=== PATIENT | female | born 1995 | race Caucasian/White ===

== ENCOUNTER 2016-07-01 10:17 | Day surgery (SDC) | payer OTHER ==
[2016-07-01] MEDS ORDERED: NORMAL SALINE 500 ML IV ONE (10:39)
[2016-07-01] MEDS ORDERED: METOCLOPRAMIDE HCL INJ/PF 10 MG/2 ML SDV IV ONE (10:39)
--- NOTE | 2016-07-01 10:41 | ER Document Report ---
Doctor's Note Notes: 07/01/16 10:40 20-year-old female 11 weeks with a history of hyperemesis presents with episodes of vomiting for the past few days. Patient denies any fevers or chills admits to abdominal cramping. Denies any vaginal bleeding or discharge Patient notes Reglan resolves her vomiting
[2016-07-01] MEDS ORDERED: MORPHINE SULFATE 10 MG/ML INJ IV ONE ×2 (10:49→12:01)
--- NOTE | 2016-07-01 10:53 | ER Document Report ---
Doctor's Note Notes: 07/01/16 10:51 I have greeted and performed a rapid initial assessment of this patient. A comprehensive ED assessment and evaluation of the patient, analysis of test results and completion of the medical decision making process will be conducted by additional ED providers. 20-year-old female presents with complaints of right lower quadrant abdominal pain. Denies any fevers or chills. Abdominal examination notes tenderness in the right lower quadrant without any guarding
--- NOTE | 2016-07-01 11:11 | ER Document Report ---
ED GI/ - General Mode of Arrival: Ambulatory TRAVEL OUTSIDE OF THE [place] IN LAST 30 DAYS: No - HPI Patient complains to provider of: Abdominal pain Associated symptoms: Other - See above <IRISH WRAY - Last Filed: 07/01/16 11:11> <HUMAIRA CRYSTAL - Last Filed: 07/01/16 13:46> - General Chief Complaint: Abdominal Pain Stated Complaint: ABDOMINAL PAIN Notes: Patient is a 20 year old female who presents to the emergency department complaining of abdominal pain onset at 0430 this morning. Patient states the pain started as "bloat pain" and has worsened. Patient reports the pain is in her RUQ and radiates into her back and across her belly. Patient states she ate [employer] last night for dinner. Patient also complains of nausea and vomiting. Patient denies states her last menstrual period was around . Patient took hydrocodone this morning around 0930 with little relief. ( IRISH WRAY) - Related Data Allergies/Adverse Reactions: Shrimp Allergy (Uncoded 07/01/16 10:21) Past Medical History - General Information source: Patient - Social History Smoking Status: Never Smoker Frequency of alcohol use: None Occupation: [employer] [place] Family History: Reviewed & Not Pertinent Patient has suicidal ideation: No Patient has homicidal ideation: No <IRISH WRAY - Last Filed: 07/01/16 11:11> Review of Systems - Review of Systems Constitutional: No symptoms reported EENT: No symptoms reported Cardiovascular: No symptoms reported Respiratory: No symptoms reported Gastrointestinal: See HPI, Abdominal pain, Nausea, Vomiting Genitourinary: No symptoms reported Female Genitourinary: denies: Musculoskeletal: No symptoms reported Skin: No symptoms reported Hematologic/Lymphatic: No symptoms reported Neurological/Psychological: No symptoms reported -: Yes All other systems reviewed and negative <IRISH WRAY - Last Filed: 07/01/16 11:11> Physical Exam - Vital signs Interpretation: Normal - General General appearance: Appears well, Alert - HEENT Head: Normocephalic, Atraumatic - Respiratory Respiratory status: No respiratory distress Chest status: Nontender Breath sounds: Normal Chest palpation: Normal - Cardiovascular Rhythm: Regular Heart sounds: Normal auscultation Murmur: No - Abdominal Inspection: Obese Distension: No distension Bowel sounds: Normal Tenderness: Tender - RUQ exquisitely tender to palpation Organomegaly: No organomegaly - Extremities General upper extremity: Normal inspection General lower extremity: Normal inspection - Neurological Neuro grossly intact: Yes Cognition: Normal Orientation: AAOx4 Monse Coma Scale Eye Opening: Spontaneous Monse Coma Scale Verbal: Oriented Monse Coma Scale Motor: Obeys Commands Jackson Coma Scale Total: 15 Speech: Normal - Psychological Associated symptoms: Normal affect, Normal mood - Skin Skin Temperature: Warm Skin Moisture: Dry Skin Color: Normal <IRISH WRAY - Last Filed: 07/01/16 11:11> Course - Laboratory Result Diagrams: 07/01/16 10:45 07/01/16 10:45 <IRISH WRAY - Last Filed: 07/01/16 11:11> - Laboratory Result Diagrams: 07/01/16 10:45 07/01/16 10:45 - Diagnostic Test Radiology reviewed: Image reviewed, Reports reviewed - Cholelithiasis without cholecystitis. Possible gallstone in the gallbladder neck. - Consults Dr. Garcia Time consulted: 13:20 Consulted provider: will come to ER <HUMAIRA CRYSTAL - Last Filed: 07/01/16 13:46> - Vital Signs Vital signs: Temp Pulse Resp BP Pulse Ox 97.7 F 77 20 144/97 H 100 07/01/16 10:22 07/01/16 10:22 07/01/16 11:10 07/01/16 10:22 07/01/16 10:22 - Laboratory Laboratory results interpreted by me: 07/01/16 07/01/16 10:45 10:45 WBC 12.1 H Seg Neutrophils % 81.7 H Absolute Neutrophils 9.9 H Glucose 124 H Discharge <IRISH WRAY - Last Filed: 07/01/16 11:11> - Discharge Admitting Provider: Surgicalist Unit Admitted: Surgical Floor <HUMAIRA CRYSTAL - Last Filed: 07/01/16 13:46> - Discharge Clinical Impression: Right upper quadrant abdominal pain Cholelithiasis Qualifiers: Cholelithiasis location: gallbladder Cholecystitis presence: without cholecystitis Biliary obstruction: without biliary obstruction Qualified Code(s) : K80.20 - Calculus of gallbladder without cholecystitis without obstruction Condition: Stable Disposition: ADMITTED INPATIENT Scribe Attestation: 07/01/16 13:23 I personally performed the services described in the documentation, reviewed and edited the documentation which was dictated to the scribe in my presence, and it accurately records my words and actions. (HUMAIRA CRYSTAL) Scribe Documentation - Scribe Written by Marc:: marc Alvarado, 07/01/16, 1121 acting as scribe for :: Nicole <IRISH WRAY - Last Filed: 07/01/16 11:11>
[2016-07-01 11:12] LABS: ABSOLUTE BASOPHILS # (AUTO) 0.1 10^3/uL (0.0-0.2); ABSOLUTE LYMPHOCYTES (AUTO) 1.7 10^3/uL (0.5-4.7); ABSOLUTE MONOCYTES (AUTO) 0.5 10^3/uL (0.1-1.4); ABSOLUTE NEUT (AUTO) 9.9 10^3/uL (1.7-8.2); BASOPHILS % (AUTO) 0.5 % (0-2); EOSINOPHILS % (AUTO) 0.1 % (0-6); HEMATOCRIT 41.9 % (36.0-47.0); HGB HCT DIFFERENCE 0.1; LYMPHOCYTES % (AUTO) 13.9 % (13-45); MEAN CORPUSCULAR HEMOGLOBIN 27.3 pg (27.0-33.4); MEAN CORPUSCULAR HGB CONC 33.4 g/dL (32.0-36.0); MEAN CORPUSCULAR VOLUME 82 fl (80-97); MONOCYTES % (AUTO) 3.8 % (3-13); RED BLOOD COUNT 5.13 10^6/uL (3.72-5.28); SEGMENTED NEUTROPHILS % (AUTO) 81.7 % (42-78); WHITE BLOOD COUNT 12.1 10^3/uL (4.0-10.5)
[2016-07-01] MEDS ORDERED: ONDANSETRON HCL INJ/PF 4 MG/2 ML SDV IV ONE (11:12)
[2016-07-01] MEDS ORDERED: KETOROLAC TROMETHAMINE INJ/PF 30 MG/1 ML SDV IV ONE (11:12)
[2016-07-01 11:28] LABS: APPEARANCE,URINE CLOUDY; BILIRUBIN,URINE NEGATIVE (NEGATIVE); GLUCOSE, URINE NEGATIVE (NEGATIVE); KETONES,URINE NEGATIVE (NEGATIVE); LEUKOCYTE ESTERASE,URINE NEGATIVE (NEGATIVE); NITRITE,URINE NEGATIVE (NEGATIVE); PROTEIN,URINE NEGATIVE (NEGATIVE); UROBILINOGEN,URINE NEGATIVE mg/dL (<2.0)
[2016-07-01 11:35] LABS: ALANINE AMINOTRANSFERASE 45 U/L (9-52); ALBUMIN 4.7 g/dL (3.5-5.0); ALKALINE PHOSPHATASE 77 U/L (38-126); ANION GAP 16 (5-19); ASPARTATE AMINO TRANSFERASE 32 U/L (14-36); BILIRUBIN,DIRECT 0.3 mg/dL (0.0-0.4); BILIRUBIN,TOTAL 0.6 mg/dL (0.2-1.3); BLOOD UREA NITROGEN 12 mg/dL (7-20); CALCIUM 9.6 mg/dL (8.4-10.2); CARBON DIOXIDE 22 mmol/L (22-30); CHLORIDE 104 mmol/L (98-107); CREATININE RESULT 0.75 mg/dL (0.52-1.25); GLUCOSE 124 mg/dL (75-110); LIPASE 58.8 U/L (23-300); POTASSIUM 4.1 mmol/L (3.6-5.0); SODIUM 141.8 mmol/L (137-145)
[2016-07-01] MEDS ORDERED: PIPERACILLIN/TAZOBACTAM 3.375 GM VIAL IV ONE ×2 (13:20→23:32)
[2016-07-01] MEDS ORDERED: DEXTROSE 5%-LACTATED RINGERS 1,000 ML IV ONE (14:09)
--- NOTE | 2016-07-01 14:58 | HISTORY AND PHYSICAL E ---
History and Physical NAME: DOC AGUILA : 1995 AGE: 20Y ADMITTED: 07/01/2016 ROOM: CHIEF COMPLAINT: Abdominal pain. HISTORY OF PRESENT ILLNESS: This is a 30-year-old female, complaining of right upper quadrant pain around 4:00 a.m. She did have a fatty meal around 10:00 last night. She had some nausea. PAST MEDICAL HISTORY: Past history is unremarkable. SOCIAL HISTORY: She denies smoking, drinking, or drug use. FAMILY HISTORY: Family history is strong for gallbladder disease. Her mother had her gallbladder removed at age 22. REVIEW OF SYSTEMS: As in HPI. She denies any diarrhea or constipation. No chest pains. No shortness of breath. No headaches or loss of balance. No earache. No blurry vision. No dysuria. No balance problems. The rest of the review of systems is unremarkable. ALLERGIES: None known. PHYSICAL EXAMINATION: GENERAL: A well-developed, well-nourished 20-year-old female, alert and oriented, complaining of right upper quadrant pain. NECK: Supple. No thyromegaly. LUNGS: Clear. HEART: Regular sinus rhythm. ABDOMEN: Soft with tenderness in the right upper quadrant. EXTREMITIES: No edema. DIAGNOSTIC DATA: Ultrasound of the gallbladder showed gallstones. Her white count is elevated to 12.5. Her LFT's are normal. IMPRESSION: Acute calculus cholecystitis. PLAN: Patient for laparoscopic cholecystectomy. DICTATING PHYSICIAN: EDMAR PALOMO M.D. [id number] PHY#: [id number] ID: [id number] JOB#: [id number] ACCT: [id number] cc:EDMAR PALOMO M.D. >
[2016-07-01] MEDS ORDERED: BUPIVACAINE HCL 0.25% /EPINEPHRINE INJ/PF 30 ML SDV ONE (15:12)
[2016-07-01] MEDS ORDERED: FENTANYL CITRATE INJ/PF 250 MCG/5 ML AMPULE ONE (15:45)
[2016-07-01] MEDS ORDERED: HYDROMORPHONE HCL INJ/PF 2 MG/ML AMPULE ONE ×2 (15:45)
[2016-07-01] MEDS ORDERED: MIDAZOLAM 2 MG/2 ML INJ ONE (15:45)
[2016-07-01] MEDS ORDERED: ONDANSETRON HCL INJ/PF 4 MG/2 ML SDV ONE (15:46)
[2016-07-01] MEDS ORDERED: EPHEDRINE SULFATE INJ 50 MG/1 ML AMPULE ONE (15:46)
[2016-07-01] MEDS ORDERED: DEXAMETHASONE SOD PHOSPHATE INJ 4 MG/1 ML VIAL ONE (15:46)
[2016-07-01] MEDS ORDERED: PROPOFOL INJ 200 MG/20 ML VIAL IV ONE (15:46)
[2016-07-01] MEDS ORDERED: MEPERIDINE HCL/PF INJ 25 MG/1 ML DISP.SYRIN IV PRN (16:13)
[2016-07-01] MEDS ORDERED: PROMETHAZINE HCL INJ 25 MG/1 ML VIAL IV PRN (16:13)
[2016-07-01] MEDS ORDERED: FENTANYL CITRATE INJ/PF 100 MCG/2 ML AMPUL IV PRN ×3 (16:13)
[2016-07-01] MEDS ORDERED: DIPHENHYDRAMINE HCL 50 MG/ML VIAL IV PRN (16:13)
[2016-07-01] MEDS ORDERED: ACETAMINOPHEN 100 ML IV ONE (18:10)
[2016-07-01] MEDS ORDERED: KETOROLAC TROMETHAMINE INJ/PF 30 MG/1 ML SDV ONE (18:10)
[2016-07-01] MEDS ORDERED: PROMETHAZINE HCL INJ 25 MG/1 ML VIAL ONE (18:29)
[2016-07-01] MEDS ORDERED: ONDANSETRON HCL INJ/PF 4 MG/2 ML SDV IV PRN (19:49)
[2016-07-01] MEDS ORDERED: HYDROMORPHONE HCL INJ/PF 2 MG/ML AMPULE IV PRN (19:50)
[2016-07-01] MEDS ORDERED: NORMAL SALINE 1000 ML 1,000 ML IV PRN (19:52)
[2016-07-01] MEDS: OXYCODONE-ACETAMINOPHEN 5-325 MG TABLET PO PRN (22:06)
[2016-07-02] MEDS ORDERED: PIPERACILLIN/TAZOBACTAM 4.5 GM VIAL IV ONE (01:41)
[2016-07-02] MEDS: PIPERACILLIN SODIUM/TAZOBACTAM 3.375 GM in NORMAL SALINE 100 ML IV SCH ×4 (03:11→17:48)
[2016-07-02] MEDS: OXYCODONE-ACETAMINOPHEN 5-325 MG TABLET PO PRN ×4 (04:53→17:47)
[2016-07-02] MEDS ORDERED: LIDOCAINE 2% INJ-PF (20 MG/ML) 10 ML AMPUL ONE (09:50)
[2016-07-02] MEDS ORDERED: NEOSTIGMINE METHYLSULFATE 10 MG/10 ML VIAL ONE (09:50)
[2016-07-02] MEDS ORDERED: SUCCINYLCHOLINE CHLORIDE INJ 200 MG/10 ML VIAL ONE (09:50)
[2016-07-02] MEDS ORDERED: GLYCOPYRROLATE INJ 0.4 MG/2 ML VIAL ONE (09:50)
[2016-07-02] MEDS ORDERED: ROCURONIUM BROMIDE INJ 50 MG/5 ML VIAL IV ONE (09:50)
[2016-07-02 15:49] VITALS: BP 133/86
--- NOTE | 2016-07-03 15:45 | OPERATIVE REPORT E ---
Operative Report NAME: DOC AGUILA : 1995 AGE: [age]Y DATE OF SURGERY: 07/01/2016 ROOM: 413 PREOPERATIVE DIAGNOSIS: Acute calculus cholecystitis. POSTOPERATIVE DIAGNOSIS: Acute calculus cholecystitis. OPERATION: Laparoscopic cholecystectomy. SURGEON: EDMAR PALOMO M.D. ANESTHESIA: General. INDICATION: This is a 20-year-old female complaining of severe right lower quadrant pains early this morning, at 4 a.m. She had a fatty meal last night. Ultrasound of the gallbladder in the ER showed gallstones near the cystic duct. Her white count was slightly elevated. Is markedly tender in the right upper quadrant. DESCRIPTION OF PROCEDURE: After adequate and general anesthesia, the patient was placed in the supine position and the abdomen prepped and draped in the usual sterile fashion. Appropriate timeout was then performed. Next, an elliptical infraumbilical incision was made and the fascia identified. Fascia was then grasped with Nancy clamps and divided. The opening was then enlarged with a Lexus clamp into the peritoneal cavity. Next, a Winter trocar was then inserted and CO2 insufflated through this trochar to a pressure of 15 mmHg. Three other trocars were placed under direct vision. A 12 mm in the subxiphoid area and two 5 mm in the right upper quadrant. Next, the gallbladder was then inspected and noted to be markedly distended and inflamed. With the use of a long needle, about 30 mL of bile was aspirated. This allowed the graspers to grasp the gallbladder. Next, the infundibulum area was then grasped and the cystic duct was then dissected bluntly and with the use of Harmonic vishal, especially around the area of the lymph node at the area of the cystic duct. This obtained hemostasis. The cystic duct area appears to be quite infrahepatic and dissection needed to be done quite gingerly. The cystic duct was then identified just below the infundibulum, which had a gallstone. The cystic duct was subsequently clipped with hemoclips and divided between the hemoclips. Cystic artery was identified and clipped with the hemoclips. The gallbladder was then dissected off the liver bed with the use of Harmonic vishal gently and slowly, because the gallbladder was quite infrahepatic. The gallbladder was then completely removed and pulled out in an Endobag through the umbilical port. The umbilical fascial opening needed to be enlarged with scissors to allow removal of the gallbladder. A small amount of bile extruded out into the area of the incision. This was then irrigated with saline solution. The liver bed was then inspected and minimal oozing noted of area of the remnant of the lymph node at the cystic duct site. This was further controlled with the use of the Harmonic vishal. No active bleeding noted, but a small piece of Surgicel was then placed at this area for better hemostasis. The irrigant was then further suctioned out. All the trocars were then removed and CO2 allowed to come out through the trocar sites. The infraumbilical fascial incision was then closed with 2 [id number] sutures using 0 Vicryl sutures. Skin was then closed with running subcuticular 4-0 Monocryl. Subcutaneous and fascia then infiltrated with 0.25% Marcaine with epinephrine. The fascial defect of the subxiphoid area was then closed with a single suture using 0 Vicryl. The fascia was then infiltrated with 0.25% Marcaine and epinephrine as far as the subcutaneous site. The rest of the skin incisions were then closed with running subcuticular closure using 4-0 Monocryl. Dermabond was used as a dressing on top of all the incisions. [place], instruments, and sponge counts were all correct and estimated blood loss was minimal. Patient then brought to the Recovery Room in satisfactory condition. DICTATING PHYSICIAN: EDMAR PALOMO M.D. [id number] PHY#: [id number] ID: [id number] JOB#: [id number] ACCT: [id number] cc:EDMAR PALOMO M.D. >
== END 2016-07-02 19:26 | disposition home or self-care (01) ==
LOC: ER 10:17 → UNDOADMIN 15:10 → EH 15:10 → ER 15:10 → OROUT 15:10 → EH 15:11 → UNDOADMIN 15:11 → 4N 19:25 → EH 19:25 → 4N 19:25 → UNDODISIN 07-02 19:26 → OROUT 07-02 19:26
PROVIDERS: ATTEND Surgery
PROC: 0FT44ZZ Resection of Gallbladder, Percutaneous Endoscopic Approach (ICD-10-PCS; principal; 2016-07-01 16:00)
DX: K80.12 Calculus of gallbladder with acute and chronic cholecystitis without obstruction (principal); E07.9 Disorder of thyroid, unspecified
CPT/HCPCS: 47562; 99285; 96375; 96365; 36415; 83690; 85025; 81025; 80053; 81001; 88304 ×2; 76705; J2250; J3490 ×3; J1100; J3010; J1885; J2270; J1170; J2550; J0330; J2405; J7040; J2704; J2543 ×2; J0131; 790

== ENCOUNTER 2017-11-29 18:35 | Outpatient (CLI) | payer BC, OTHER ==
[2017-11-29 19:09] LABS: APPEARANCE,URINE SLIGHTLY-CLOUDY; BILIRUBIN,URINE NEGATIVE (NEGATIVE); COLOR,URINE YELLOW; GLUCOSE, URINE NEGATIVE (NEGATIVE); KETONES,URINE NEGATIVE (NEGATIVE); LEUKOCYTE ESTERASE,URINE SMALL (NEGATIVE); NITRITE,URINE NEGATIVE (NEGATIVE); PROTEIN,URINE NEGATIVE (NEGATIVE); URINE SPECIFIC GRAVITY 1.011; UROBILINOGEN,URINE NEGATIVE mg/dL (<2.0)
[2017-11-29 19:23] LABS: URINE AMPHETAMINES SCREEN NEGATIVE; URINE BARBITURATES SCREEN NEGATIVE; URINE BENZODIAZEPINES SCREEN NEGATIVE; URINE COCAINE SCREEN NEGATIVE; URINE MARIJUANA (THC) SCREEN NEGATIVE; URINE METHADONE SCREEN NEGATIVE; URINE PHENCYCLIDINE SCREEN NEGATIVE
--- NOTE | 2017-11-29 20:02 | RADIOLOGY REPORT (SQ) ---
EXAM DESCRIPTION: U/S OB LIMITED COMPLETED DATE/TIME: 11/29/2017 7:38 pm REASON FOR STUDY: RADHA COMPARISON: None. TECHNIQUE: Limited transabdominal grayscale ultrasound for evaluation of specific requested obstetri altagracia parameters. LIMITATIONS: None. FINDINGS: CERVICAL LENGTH: 1.8 cm. Closed. RADHA: 9.2 cm. FHR: 140 beats per minute. PRESENTATION: Cephalic. OTHER: Gestational age is 27 weeks 3 days. IMPRESSION: LIMITED OBSTETRICAL ULTRASOUND WITH MEASURED PARAMETERS DELINEATED ABOVE. Trimester of : Second trimester - 13 weeks 1 day to 27 weeks 6 days. TECHNICAL DOCUMENTATION: JOB ID: [id number] [employer]- All Rights Reserved Reading location - IP/workstation name: [email or web address]
== END 2017-11-29 20:23 | disposition home or self-care (01) ==
LOC: LC 18:35
PROVIDERS: ATTEND Obstetrics & Gynecology Gynecology
PROC: 4A1HXCZ Monitoring of Products of Conception, Cardiac Rate, External Approach (ICD-10-PCS; principal; 2017-11-29)
DX: Z34.92 Encounter for supervision of normal pregnancy, unspecified, second trimester (principal); Z3A.27 27 weeks gestation of pregnancy
CPT/HCPCS: 76815; 80307; 81001

== ENCOUNTER 2018-01-20 09:05 | Outpatient (CLI) | payer BC ==
[2018-01-20 09:59] LABS: APPEARANCE,URINE SLIGHTLY-CLOUDY; BILIRUBIN,URINE NEGATIVE (NEGATIVE); COLOR,URINE YELLOW; GLUCOSE, URINE NEGATIVE (NEGATIVE); KETONES,URINE NEGATIVE (NEGATIVE); LEUKOCYTE ESTERASE,URINE SMALL (NEGATIVE); NITRITE,URINE NEGATIVE (NEGATIVE); PROTEIN,URINE NEGATIVE (NEGATIVE); URINE SPECIFIC GRAVITY 1.014; UROBILINOGEN,URINE NEGATIVE mg/dL (<2.0)
[2018-01-20 10:22] LABS: URINE AMPHETAMINES SCREEN NEGATIVE; URINE BARBITURATES SCREEN NEGATIVE; URINE BENZODIAZEPINES SCREEN NEGATIVE; URINE COCAINE SCREEN NEGATIVE; URINE MARIJUANA (THC) SCREEN NEGATIVE; URINE METHADONE SCREEN NEGATIVE; URINE PHENCYCLIDINE SCREEN NEGATIVE
== END 2018-01-20 10:15 | disposition home or self-care (01) ==
LOC: LC 09:05
PROVIDERS: ATTEND Obstetrics & Gynecology
PROC: 4A1HXCZ Monitoring of Products of Conception, Cardiac Rate, External Approach (ICD-10-PCS; principal; 2018-01-20)
DX: O47.03 False labor before 37 completed weeks of gestation, third trimester (principal); O36.8130 Decreased fetal movements, third trimester, not applicable or unspecified; Z3A.35 35 weeks gestation of pregnancy
CPT/HCPCS: 59025; 80307; 81001

== ENCOUNTER 2018-02-06 14:07 | Outpatient (CLI) | payer BC ==
[2018-02-06 14:52] LABS: APPEARANCE,URINE SLIGHTLY-CLOUDY; BILIRUBIN,URINE NEGATIVE (NEGATIVE); COLOR,URINE STRAW; GLUCOSE, URINE NEGATIVE (NEGATIVE); KETONES,URINE NEGATIVE (NEGATIVE); LEUKOCYTE ESTERASE,URINE MODERATE (NEGATIVE); NITRITE,URINE NEGATIVE (NEGATIVE); PROTEIN,URINE NEGATIVE (NEGATIVE); URINE SPECIFIC GRAVITY 1.006; UROBILINOGEN,URINE NEGATIVE mg/dL (<2.0)
--- NOTE | 2018-02-06 15:01 | Non Stress Test Report ---
Non Stress Test Datetime Report Generated by CPN: 02/06/2018 15:01 DEMOGRAPHIC EGA NST: 37.3 EGA NST: 35.0 INDICATION Indication for Study: Ordered by Provider Indication for Study: Decreased Movement; Other Indication for Study (NST) Other: lc VITAL SIGNS Temperature - NST: 99.4 Pulse - NST: 92 RESP - NST: 18 NBPSYS NST: 109 NBPDIA NST: 66 MONITORING Monitor Explained: Monitor Explained; Test Explained; Patient Verbalized Understanding Monitor Explained: Monitor Explained; Test Explained; Patient Verbalized Understanding Time on Monitor: 02/06/2018 14:30 Time on Monitor: 01/20/2018 09:18 Time off Monitor: 02/06/2018 14:58 Time off Monitor: 01/20/2018 10:11 NST Duration: 28 NST Duration: 53 NST INTERVENTIONS NST Interventions: PO Hydration NST Interventions: PO Hydration; Reposition Patient Physician Notified NST: Dr. Younger BABY A: [id number] BABY A Movement : Present Movement : Present Contraction Frequency : none Contraction Frequency : occasional FHR Baseline : 135 FHR Baseline : 145 Accelerations : 15X15 Accelerations : 15X15 Decelerations : None Decelerations : None Variability : Moderate 6-25bpm Variability : Moderate 6-25bpm NST Review: Meets Criteria for Reactive NST NST Review: Meets Criteria for Reactive NST NST Review and Verified By : DEENA Santana NST Review and Verified By : DEENA JohnsonT Results: Reactive NST Results: Reactive NST REPORT Report Trigger: Send Report
[2018-02-06 15:09] LABS: URINE AMPHETAMINES SCREEN NEGATIVE; URINE BARBITURATES SCREEN NEGATIVE; URINE BENZODIAZEPINES SCREEN NEGATIVE; URINE COCAINE SCREEN NEGATIVE; URINE MARIJUANA (THC) SCREEN NEGATIVE; URINE METHADONE SCREEN NEGATIVE; URINE PHENCYCLIDINE SCREEN NEGATIVE
== END 2018-02-06 15:03 | disposition home or self-care (01) ==
LOC: LC 14:07
PROVIDERS: ATTEND Obstetrics & Gynecology
PROC: 4A1HXCZ Monitoring of Products of Conception, Cardiac Rate, External Approach (ICD-10-PCS; principal; 2018-02-06)
DX: O36.8130 Decreased fetal movements, third trimester, not applicable or unspecified (principal); Z3A.37 37 weeks gestation of pregnancy
CPT/HCPCS: 59025; 80307; 81005; 84112

== ENCOUNTER 2018-02-19 00:05 | Inpatient (IN) | payer BC ==
[2018-02-19] MEDS ORDERED: ACETAMINOPHEN 325 MG TABLET PO PRN (00:21)
[2018-02-19] MEDS ORDERED: ZOLPIDEM TARTRATE 5 MG TABLET PO PRN (00:21)
[2018-02-19] MEDS ORDERED: MAG HYDROX/AL HYDROX/SIMETH SUSP 30 ML UDCUP PO PRN (00:21)
[2018-02-19] MEDS ORDERED: RINGERS SOLUTION,LACTATED 300 ML IV ONE (00:30)
[2018-02-19] MEDS ORDERED: DINOPROSTONE 10 MG VAGINAL INSERT.SR PV ONE (00:30)
[2018-02-19 00:47] LABS: ABSOLUTE EOSINOPHILS # (AUTO) 0.1 10^3/uL (0.0-0.6); ABSOLUTE LYMPHOCYTES (AUTO) 2.4 10^3/uL (0.5-4.7); ABSOLUTE MONOCYTES (AUTO) 0.6 10^3/uL (0.1-1.4); BASOPHILS % (AUTO) 0.4 % (0-2); EOSINOPHILS % (AUTO) 0.7 % (0-6); HEMATOCRIT 32.4 % (36.0-47.0); HEMOGLOBIN 10.9 g/dL (12.0-15.5); MEAN CORPUSCULAR HEMOGLOBIN 24.9 pg (27.0-33.4); MEAN CORPUSCULAR HGB CONC 33.7 g/dL (32.0-36.0); MEAN CORPUSCULAR VOLUME 74 fl (80-97); MONOCYTES % (AUTO) 6.7 % (3-13); PLATELET COUNT 198 10^3/uL (150-450); RED BLOOD COUNT 4.37 10^6/uL (3.72-5.28); RED CELL DISTRIBUTION WIDTH 14.7 % (11.5-14.0); SEGMENTED NEUTROPHILS % (AUTO) 66.2 % (42-78); TOTAL CELLS COUNTED % (AUTO) 100 %; WHITE BLOOD COUNT 9.1 10^3/uL (4.0-10.5)
[2018-02-19 01:01] LABS: APPEARANCE,URINE SLIGHTLY-CLOUDY; BILIRUBIN,URINE NEGATIVE (NEGATIVE); COLOR,URINE YELLOW; GLUCOSE, URINE NEGATIVE (NEGATIVE); KETONES,URINE NEGATIVE (NEGATIVE); LEUKOCYTE ESTERASE,URINE TRACE (NEGATIVE); NITRITE,URINE NEGATIVE (NEGATIVE); PROTEIN,URINE NEGATIVE (NEGATIVE); URINE SPECIFIC GRAVITY 1.019; UROBILINOGEN,URINE NEGATIVE mg/dL (<2.0)
[2018-02-19] MEDS ORDERED: OXYTOCIN 10 UNIT/ML VIAL ONE (01:05)
[2018-02-19] MEDS ORDERED: DINOPROSTONE 10 MG VAGINAL INSERT.SR ONE ×2 (01:06→18:24)
[2018-02-19] MEDS ORDERED: MISOPROSTOL 0.2 MG TABLET ONE (01:06)
[2018-02-19] MEDS ORDERED: OXYTOCIN/NORMAL SALINE 20 UNIT/1,000 ML RTUINJ ONE (01:06)
[2018-02-19] MEDS ORDERED: LIDOCAINE 1% INJ-PF (10 MG/ML) 30 ML SDV ONE (01:06)
[2018-02-19 01:17] LABS: URINE AMPHETAMINES SCREEN NEGATIVE; URINE BARBITURATES SCREEN NEGATIVE; URINE BENZODIAZEPINES SCREEN NEGATIVE; URINE COCAINE SCREEN NEGATIVE; URINE MARIJUANA (THC) SCREEN NEGATIVE; URINE METHADONE SCREEN NEGATIVE; URINE PHENCYCLIDINE SCREEN NEGATIVE
[2018-02-19] MEDS: RINGERS SOLUTION,LACTATED 1,000 ML IV PRN ×2 (01:23→18:29)
--- NOTE | 2018-02-19 08:47 | Admission Physical ---
Datetime Report Generated by CPN: 02/19/2018 08:47 CURRENT ADMISSION Chief Complaint: Scheduled Induction of Labor Indication for Induction: Maternal Diabetes Indication for Induction- Other: on Insulin Admit Impression : Term, Intrauterine ; Induction of Labor Admit Plan: Initiate Labor Induction Protocol ALLERGIES Medication Allergies: No Medication Allergies: shellfish derived (02/19/2018) Latex: No Latex Allergies Food Allergies: shelfish OBSTETRICAL HISTORY EDC: 02/24/2018 00:00 : 1 Para: 0 Term: 0 : 0 SAB: 0 IAB: 0 Ectopic: 0 Livin Cesareans: 0 VBACs: 0 Multiple Births: 0 Gestational Diabetes: No Rh Sensitization: No Incompetent Cervix: No LINDA: No Infertility: No ART Treatment: No Uterine Anomaly: No IUGR: No Hx Previous C/S: No Macrosomia: No Hx Loss/Stillborn: No PIH: No Hx : No Placenta Previa/Abruption: No Depression/PP Depression: No PTL/PROM: No Post Hemorrhage: No Current Procedures: Ultrasound Obstetrical History Comments: G1 current SEE RECORDS Alcohol: No Marijuana : No Cocaine: No Other Illicit Drugs: No Cigarettes: Never Smoker. [id number] MEDICAL HISTORY Diabetes: Yes Diabetes Type: Gestational Diabetes Blood Transfusion: No Pulmonary Disease (Asthma, TB): No Breast Disease: No Hypertension: No Analysis Reporting Developer Surgery: No Heart Disease: No Hosp/Surgery: Yes Autoimmune Disorder: No Anesthetic Complications: No Kidney Disease: No Abnormal Pap Smear: No Neuro/Epilepsy: No Psychiatric Disorders: No Other Medical Diseases: No Hepatitis/Liver Disease: No Significant Family History: No Varicosities/Phlebitis: No Trauma/Violence : No Thyroid Dysfunction: Yes Medical History Comments: gallbladder removed 2017, hypothyroidism INFECTIOUS HISTORY Gonorrhea: No Genital Herpes: No Chlamydia: No Tuberculosis: No Syphilis: No Hepatitis: No HIV/AIDS Exposure: No Rash or Viral Illness: No HPV: No PHYSICAL EXAM General: Normal HEENT: Normal Neurologic: Normal Thyroid: Normal Heart: Normal Lungs: Normal Breast: Normal Back: Normal Abdomen: Normal Genitourinary Exam: Normal Extremities: Normal DTRs: Normal Pelvic Type: Adequate Vital Signs: Reviewed; Within Normal Limits MEMBRANES Membranes: Intact FETUS A EGA: 39.2 Monitoring: External US FHR- Baseline: 130 Variability: Moderate 6-25bpm Accelerations: 15X15 Decelerations: None FHR Category: Category I Admit Comment: at 39.1 wks presents for IOL due to IR-GDM. Pt doing well this morning. No complaints. GBS positive. Cervidil placed at 0115 for cervical ripening. Attending MD is Dr Niño. PLANS FOR LABOR AND DELIVERY Pain Management: None Feeding Preference: Both Benefit of Breast Feed Discussed: Yes Circumcision: Yes INFORMED CONSENT Assignment: Piter Niño MD Signature: with User ID: [email or web address] : with User ID: [email or web address]
[2018-02-19] MEDS: LEVOTHYROXINE SODIUM 0.05 MG TABLET PO SCH (09:17)
[2018-02-19] MEDS ORDERED: INSULIN REG, HUMAN 100 UNIT/ML 3 ML VIAL (PYX) SUBCUT PRN (09:28)
[2018-02-19] MEDS ORDERED: DEXTROSE 40% GEL 15 GM TUBE PO PRN (09:28)
[2018-02-19] MEDS ORDERED: GLUCAGON,HUMAN RECOMB 1 MG INJ IM PRN (09:28)
[2018-02-19] MEDS ORDERED: DEXTROSE 50%-WATER SYRINGE 12.5 GM/25 ML DOSE IV PRN (09:28)
[2018-02-19] MEDS ORDERED: DEXTROSE 40% GEL 15 GM TUBE X 2 PO PRN (09:28)
[2018-02-19] MEDS ORDERED: DEXTROSE 50%-WATER SYRINGE 25 GM/50 ML DOSE IV PRN (09:28)
--- NOTE | 2018-02-19 15:00 | L&D Progress Notes ---
PROGRESS NOTES Datetime Report Generated by CPN: 02/19/2018 15:00 PROGRESS NOTE Impression: Reassuring Heart Rate Procedures: Sterile Vag Exam Plan: Continue Present Management; Induction; Cervical Ripening Plan Other: PCN when in labor Vital Signs : Reviewed; Within Normal Limits Comment: s/p Cervidil IOL for IR-GDM. cervidil removed, pt did eat lunch and shower. Doing well, no complaints, FSBS has been in the 90's so far today. VE with minimal cervical change. Will plan on placing another cervidil this evening after pt eats dinner. Will start PCN once pt is in active labor. Dr Niño agrees w/ plan of care VAGINAL EXAM Dilatation: 0 Effacement: 50 Station: -1 Contractions: 2-4 LAST VAGINAL EXAM-NURSING Dilitation: 0.5 Dilitation: cl Dilitation: 0.0 Effacement: 50 Effacement: th Effacement: 0 Station: -1 Station: high Station: -4 Contractions: CECILIA APPLIED MEMBRANES Membranes: Intact FETUS A FHR - Baseline: 140 Monitoring: External US Variability: Moderate 6-25bpm Accelerations: 15X15 Decelerations: None SIGNATURE SIGNATURE: 10,[id number];14,[id number];13,[id number] SIGNATURE: 13,[id number];14,[id number] SIGNATURE: [id number] Assignment: Janessa Ramesh MD Signature: with User ID: [email or web address] : with User ID: [email or web address]
[2018-02-19] MEDS ORDERED: DINOPROSTONE 10 MG VAGINAL INSERT.SR PV PRN (15:02)
[2018-02-20] MEDS ORDERED: ACETAMINOPHEN 325 MG TABLET ONE (02:18)
[2018-02-20] MEDS ORDERED: ACETAMINOPHEN 325 MG TABLET PO ONE (02:27)
[2018-02-20] MEDS: LEVOTHYROXINE SODIUM 0.05 MG TABLET PO SCH (06:27)
[2018-02-20] MEDS ORDERED: PENICILLIN G-K 5 MILLION UNIT VIAL ONE ×3 (08:58→17:20)
[2018-02-20] MEDS ORDERED: LIDOCAINE 2% JELLY 5 ML TUBE ONE (08:58)
[2018-02-20] MEDS ORDERED: PENICILLIN G POTASSIUM 5,000,000 UNIT in DEXTROSE 5%-WATER 100 ML IV ONE (09:15)
--- NOTE | 2018-02-20 09:25 | L&D Progress Notes ---
PROGRESS NOTES Datetime Report Generated by CPN: 02/20/2018 09:25 PROGRESS NOTE Procedures: Sterile Vag Exam Plan: Induction Comment: attempted to place sebastian bulb, not needed according to exam--will go ahead and start pitocin VAGINAL EXAM Dilatation: 3 Effacement: 70 Station: -2 Dilitation: 1.0 Dilitation: 0.5 Effacement: 60 Effacement: 50 Station: -2 Station: -1 MEMBRANES Membranes: Intact FETUS A FHR - Baseline: 150 Decelerations: Variable FETUS C SIGNATURE: 13,[id number];14,[id number];10,[id number] Assignment: Gloria Pearson MD Signature: with User ID: Mario Alberto : with User ID: Mario Alberto
[2018-02-20] MEDS ORDERED: NALBUPHINE HCL INJ 10 MG/1 ML AMPULE ONE ×4 (11:34→11:52)
[2018-02-20] MEDS ORDERED: PROMETHAZINE HCL INJ 25 MG/1 ML VIAL ONE ×3 (11:34→11:52)
[2018-02-20] MEDS ORDERED: NALBUPHINE HCL INJ 10 MG/1 ML AMPULE INJ ONE (11:35)
[2018-02-20] MEDS ORDERED: PROMETHAZINE HCL INJ 25 MG/1 ML VIAL IV ONE (11:35)
[2018-02-20] MEDS: PENICILLIN G POTASSIUM 2,500,000 UNIT in DEXTROSE 5%-WATER 50 ML IV SCH ×2 (13:34→17:23)
[2018-02-20] MEDS: RINGERS SOLUTION,LACTATED 1,000 ML IV PRN (14:10)
--- NOTE | 2018-02-20 14:10 | L&D Progress Notes ---
PROGRESS NOTES Datetime Report Generated by CPN: 02/20/2018 14:09 PROGRESS NOTE Impression: Normal Progression of Labor Procedures: Artificial ROM Plan: Continue Present Management Comment: undecided on epidural Pitocin at 18 VAGINAL EXAM Dilitation: 3.0 Dilitation: 3.0 Effacement: 80 Effacement: 80 Station: -2 Station: -2 Contractions: with irritability MEMBRANES Membranes: Ruptured Amniotic Fluid Color: Bloody FETUS A FHR - Baseline: 135 Variability: Moderate 6-25bpm Decelerations: Early : 39.3 FETUS C SIGNATURE: 10,[id number];14,[id number];13,[id number] Assignment: Gloria Pearson MD Signature: with User ID: [email or web address] : with User ID: Mario Alberto
[2018-02-20] MEDS ORDERED: FENTANYL/BUPIVACAINE/NS/PF 300 MCG/150 ML RTUINJ EPI ONE (14:49)
[2018-02-20] MEDS ORDERED: EPHEDRINE SULFATE INJ 50 MG/1 ML AMPULE ONE ×2 (14:49→19:40)
[2018-02-20] MEDS ORDERED: BUPIVACAINE HCL 0.5 % INJ/PF 30 ML SDV ONE (14:49)
[2018-02-20] MEDS ORDERED: OXYTOCIN/NORMAL SALINE 20 UNIT/1,000 ML RTUINJ ONE (18:46)
[2018-02-20] MEDS ORDERED: LIDOCAINE 1% INJ-PF (10 MG/ML) 30 ML SDV ONE (19:11)
[2018-02-20] MEDS ORDERED: ACETAMINOPHEN WITH CODEINE #3 TABLET PO PRN ×2 (19:51)
[2018-02-20] MEDS ORDERED: ZOLPIDEM TARTRATE 5 MG TABLET PO PRN (19:51)
[2018-02-20] MEDS ORDERED: METHYLERGONOVINE MALEATE INJ/PF 0.2 MG/1 ML AMPULE ONE (19:51)
[2018-02-20] MEDS ORDERED: DIPH/PERTUSS(ACELL)/TETANUS VAC/PF 0.5 ML SYR (>=10YO) IM PRN (19:51)
[2018-02-20] MEDS ORDERED: DIBUCAINE 1% OINTMENT 28 GM TP PRN (19:51)
[2018-02-20] MEDS ORDERED: MEASLES,MUMPS&RUBELLA VACC/PF 0.5 ML VIAL SUBCUT PRN (19:51)
[2018-02-20] MEDS ORDERED: OXYTOCIN/NORMAL SALINE 20 UNIT/1,000 ML RTUINJ IV PRN (19:51)
[2018-02-20] MEDS ORDERED: BENZOCAINE/MENTHOL AEROSOL SPRAY 56 ML TOP PRN (19:51)
[2018-02-20] MEDS ORDERED: CLINDAMYCIN 900 MG/D5W RTU 900 MG/50 ML RTUPB IV ONE (20:50)
[2018-02-20] MEDS: CLINDAMYCIN 900 MG/D5W RTU 900 MG/50 ML RTUPB IV SCH (21:01)
--- NOTE | 2018-02-20 22:04 | Delivery Summary ---
Del Sum A-C Datetime Report Generated by CPN: 02/20/2018 22:04 DELIVERY PERSONNEL DELIVERY PERSONNEL: [id number] Delivery Doctor:: Gloria Pearson MD Labor and Delivery Nurse:: Mela Gilmore RN Nursery Nurse:: Phuong De La Cruz RN Additional Personnel: : Amrita Giles MATERNAL INFORMATION Delivery Anesthesia: Epidural Medications After Delivery: Pitocin Bolus-Please Comment; Cytotec 1000mcg Per Rectum/Vagina Meds After Delivery Comment: Pitocin 20 units in 1 L NS bolusing per order Estimated Blood Loss (ml): 500 Maternal Complications: None; Maternal Fever Provider Comments: of a viable male at 1830 w/an OA presentation; APGARS 9, 9; 2nd degree left sulcus and 2nd midline lacerations LABOR SUMMARY EDC: 02/24/2018 00:00 No. Babies in Womb: 1 Attempted: No Labor Anesthesia: Epidural LABOR INFORMATION Reason for Induction: Maternal Diabetes Onset of Labor: 02/20/2018 14:02 Complete Dilatation: 02/20/2018 16:45 Cervical Ripening Agents: Cervidil Oxytocin: Induction Group B Beta Strep: positive Antibiotics # of Doses: 3 Antibiotics Time of Last Dose: 1731 Name of Antibiotic Given: PCN Steroids Given: None Reason Steroids Not Administered: Not Applicable MEMBRANES Membranes Rupture Method: Artificial Rupture of Membranes: 02/20/2018 13:53 Length of Rupture (hr): 4.75 Amniotic Fluid Color: Clear Amniotic Fluid Amount: Small Amniotic Fluid Odor: Normal STAGES OF LABOR Stage 1 hr: 2 Stage 1 min: 43 Stage 2 hr: 1 Stage 2 min: 53 Stage 3 hr: 0 Stage 3 min: 3 Total Time in Labor hr: 4 Total Time in Labor min: 39 VAGINAL DELIVERY Episiotomy: None Laceration #1: Vaginal Laceration Extension #1: Second Degree Laceration #2: Sulcus Laceration Extension #2: Second Degree Laceration Repair: Yes Laceration Repair Note: 2-0 Vicryl and 2-0 Chromic used to repair the lacerations Initial Vag Sponge Count: 0 Final Vag Sponge Count: 0 Initial Vag Sharps Count: 0 Final Vag Sharps Count: 0 Sponge Count Correct: Yes Sharps Count Correct: Yes CSECTION DELIVERY Primary Indication: N/A Secondary Indication: N/A CSection Incidence: N/A Labor: N/A Elective: N/A CSection Incision: N/A BABY A INFORMATION Infant Delivery Date/Time: 02/20/2018 18:38 Method of Delivery: Vaginal Born in Route : No : N/A Forceps: N/A Vacuum Extraction: N/A Shoulder Dystocia : No PRESENTATION/POSITION BABY A Presentation: Cephalic Cephalic Presentation: Vertex Vertex Position: OA Breech Presentation: N/A PLACENTA INFORMATION BABY A Placenta Delivery Time : 02/20/2018 18:41 Placenta Method of Delivery: Spontaneous Placenta Status: Delivered SCORES BABY A Heart Rate 1 min: >100 bpm Resp Effort 1 min: Good Cry Reflex Irritability 1 min: Cough or Sneeze or Pulls Away Muscle Tone 1 min: Active Motion Color 1 min: Body [place], Extremities Blue Resuscitation Effort 1 min: Tactile Stimulation SCORE 1 MIN: 9 Heart Rate 5 min: >100 bpm Resp Effort 5 min: Good Cry Reflex Irritability 5 min: Cough or Sneeze or Pulls Away Muscle Tone 5 min: Active Motion Color 5 min: Body [place], Extremities Blue Resuscitation Effort 5 min: Tactile Stimulation SCORE 5 MIN: 9 INFANT INFORMATION BABY A Gestational Age at Delivery: 39.3 Gestational Status: Full Term- 39- 40.6 Weeks Outcome : Liveborn Infant Condition : Stable Sex: Male IDENTIFICATION BABY A Infant Verification Date/Time: 02/20/2018 19:06 ID Band Number: [id number] Mother's Name Verified: Yes RN Verifying : M. Mando, RN, J. Hengst WEIGHT/LENGTH BABY A Infant Birthweight (gm): 3150 Infant Weight (lb): 6 Infant Weight (oz): 15 Infant Length (in): 20.00 Length (cm): 50.80 CORD INFORMATION BABY A No. Cord Vessels: 3 Nuchal Cord : N/A Cord Blood Taken: Yes-For Eval (Mom's Blood Type - or O+) Infant Suction: Mouth; Nose ASSESSMENT BABY A Complications: None Physical Findings at Delivery: Within Normal Limits Respirations: Appears Normal Skin to Skin: Yes Glass Fitter/ALS Called : No Care By: Vinicius De La Cruz, RN Transferred To: Remains with Mother BABY B INFORMATION : N/A SIGNATURES Signature: with User ID: [email or web address] : I was personally available for consultation and serving as supervising physician for the MLP.
[2018-02-20] MEDS ORDERED: ONDANSETRON HCL INJ/PF 4 MG/2 ML SDV IV PRN (22:39)
[2018-02-20] MEDS ORDERED: ONDANSETRON HCL INJ/PF 4 MG/2 ML SDV ONE (22:44)
[2018-02-21] MEDS: IBUPROFEN 800 MG TABLET PO SCH ×4 (00:14→21:31)
[2018-02-21] MEDS: LEVOTHYROXINE SODIUM 0.05 MG TABLET PO SCH (05:48)
[2018-02-21] MEDS: CLINDAMYCIN 900 MG/D5W RTU 900 MG/50 ML RTUPB IV SCH (05:49)
[2018-02-21 07:58] LABS: HEMATOCRIT 21.1 % (36.0-47.0); MEAN CORPUSCULAR HEMOGLOBIN 24.2 pg (27.0-33.4); MEAN CORPUSCULAR HGB CONC 32.7 g/dL (32.0-36.0); MEAN CORPUSCULAR VOLUME 74 fl (80-97); PLATELET COUNT 170 10^3/uL (150-450); RED BLOOD COUNT 2.85 10^6/uL (3.72-5.28); RED CELL DISTRIBUTION WIDTH 14.8 % (11.5-14.0); WHITE BLOOD COUNT 11.9 10^3/uL (4.0-10.5)
[2018-02-21 08:00] LABS: HEMOGLOBIN 6.9 g/dL (12.0-15.5)
[2018-02-21] MEDS ORDERED: IRON SUCROSE COMPLEX INJ/PF 100 MG/5 ML SDV IV ONE (09:00)
[2018-02-21] MEDS: FERROUS SULFATE 325 MG TABLET PO SCH ×2 (09:24→17:18)
[2018-02-21] MEDS: SENNOSIDES/DOCUSATE 8.6-50 MG 1 EACH TABLET PO SCH (09:24)
[2018-02-21] MEDS: PRENATAL VITAMIN W DHA CAPSULE PO SCH (09:24)
[2018-02-21] MEDS: DOCUSATE SODIUM 100 MG CAPSULE PO SCH ×2 (09:24→17:18)
--- NOTE | 2018-02-21 10:15 | PDOC PROGRESS REPORT ---
Subjective-OB Progress Note for:: 02/21/18 Subjective: reports bleeding slowing, pain controlled with current meds, no needs expressed , states she has has a little bit of dizziness. offered blood transfusion, pt declines for now Physical Exam (OB) Vital Signs: Temp Pulse Resp BP Pulse Ox 98.2 F 107 H 18 125/85 98 02/21/18 07:55 02/21/18 07:55 02/21/18 07:55 02/21/18 07:55 02/21/18 07:55 Intake & Output 02/20/18 02/21/18 02/22/18 06:59 06:59 06:59 Intake Total 2000 1000 Output Total 800 Balance 2000 200 - Abdomen Description: Soft, Round Hernia Present: No Fundal Description: Firm, Midline Fundal Height: u/u - u/2 - Abdominal Distension: No distension Tenderness: Nontender - Extremities Lower extremities: Idania's sign - neg Calf: Normal, Nontender Objective-Diagnostic Laboratory: 02/21/18 07:10 02/21/18 07:10 WBC 11.9 H RBC 2.85 L Hgb 6.9 L D Hct 21.1 L MCV 74 L MCH 24.2 L MCHC 32.7 RDW 14.8 H Plt Count 170 Assessment and Plan(PN) - Assessment and Plan (1) Normal vaginal delivery Is this a current diagnosis for this admission?: Yes (2) hemorrhage Qualifiers: hemorrhage type: other immediate Qualified Code(s): O72.1 - Other immediate hemorrhage Is this a current diagnosis for this admission?: Yes (3) Anemia Is this a current diagnosis for this admission?: Yes - Time Spent with Patient Time with patient: Less than 15 minutes - Disposition Anticipated Discharge: Home Within: within 48 hours
[2018-02-22] MEDS: LEVOTHYROXINE SODIUM 0.05 MG TABLET PO SCH (06:42)
[2018-02-22] MEDS: IBUPROFEN 800 MG TABLET PO SCH ×2 (06:42→13:34)
[2018-02-22 06:45] LABS: ABSOLUTE BASOPHILS # (AUTO) 0.1 10^3/uL (0.0-0.2); ABSOLUTE EOSINOPHILS # (AUTO) 0.2 10^3/uL (0.0-0.6); ABSOLUTE LYMPHOCYTES (AUTO) 2.7 10^3/uL (0.5-4.7); ABSOLUTE MONOCYTES (AUTO) 0.6 10^3/uL (0.1-1.4); BASOPHILS % (AUTO) 0.6 % (0-2); EOSINOPHILS % (AUTO) 2.6 % (0-6); HEMATOCRIT 20.3 % (36.0-47.0); LYMPHOCYTES % (AUTO) 28.4 % (13-45); MEAN CORPUSCULAR HEMOGLOBIN 24.8 pg (27.0-33.4); MEAN CORPUSCULAR HGB CONC 32.9 g/dL (32.0-36.0); MEAN CORPUSCULAR VOLUME 76 fl (80-97); MONOCYTES % (AUTO) 6.4 % (3-13); PLATELET COUNT 164 10^3/uL (150-450); RED BLOOD COUNT 2.68 10^6/uL (3.72-5.28); RED CELL DISTRIBUTION WIDTH 14.6 % (11.5-14.0); TOTAL CELLS COUNTED % (AUTO) 100 %; WHITE BLOOD COUNT 9.6 10^3/uL (4.0-10.5)
[2018-02-22 06:49] LABS: HEMOGLOBIN 6.7 g/dL (12.0-15.5)
[2018-02-22] MEDS: PENICILLIN G POTASSIUM 2,500,000 UNIT in DEXTROSE 5%-WATER 50 ML IV SCH (07:47)
[2018-02-22] MEDS ORDERED: NORMAL SALINE 250 ML IV PRN (09:10)
[2018-02-22] MEDS: DOCUSATE SODIUM 100 MG CAPSULE PO SCH (09:49)
[2018-02-22] MEDS: FERROUS SULFATE 325 MG TABLET PO SCH (09:49)
[2018-02-22] MEDS: PRENATAL VITAMIN W DHA CAPSULE PO SCH (09:49)
[2018-02-22] MEDS: SENNOSIDES/DOCUSATE 8.6-50 MG 1 EACH TABLET PO SCH (09:49)
--- NOTE | 2018-02-22 11:00 | PDOC DISCHARGE SUMMARY ---
Final Diagnosis Discharge Date: 02/22/18 - Final Diagnosis (1) Normal vaginal delivery Is this a current diagnosis for this admission?: Yes (2) hemorrhage Is this a current diagnosis for this admission?: Yes (3) Anemia Is this a current diagnosis for this admission?: Yes Discharge Data - Discharge Medication Home Medications: Levothyroxine Sodium [Synthroid 50 Mcg Tablet] 50 mcg PO DAILY 11/29/17 Pnv No.95/Ferrous Fum/Folic AC [ Vitamin Tablet] 1 each PO DAILY NPH, Human Insulin Isophane [Novolin N (NPH) Insulin 100 unit/mL] 28 unit SUBCUT QHS 02/06/18 Procedures: NST Intrapartum Procedure(s): Spontaneous Vaginal Delivery Laceration-Degree: 2nd - Diagnosis Test Laboratory: Temp Pulse Resp BP Pulse Ox 98.4 F 97 16 113/73 98 02/22/18 07:42 02/22/18 07:42 02/22/18 07:42 02/22/18 07:42 02/22/18 07:42 02/19/18 02/19/18 02/21/18 00:17 00:36 07:10 RBC 4.37 2.85 L Hgb 10.9 L 6.9 L D Hct 32.4 L 21.1 L Urine Opiates Screen NEGATIVE 02/22/18 06:10 RBC 2.68 L Hgb 6.7 L Hct 20.3 L Urine Opiates Screen - Discharge information/Instructions Discharge Activity: Balance Activity w/Rest, Pelvic Rest Discharge Diet: Regular Disposition: HOME, SELF-CARE Follow up with: [facility] in: 4, Weeks
[2018-02-22 18:25] VITALS: BP 131/76
== END 2018-02-22 18:11 | disposition home or self-care (01) | DRG 806 ==
LOC: LR 00:05 → 2S 02-20 23:06
PROVIDERS: ADMIT Obstetrics & Gynecology; ATTEND Obstetrics & Gynecology
PROC: 10E0XZZ Delivery of Products of Conception, External Approach (ICD-10-PCS; principal; 2018-02-20)
PROC: 30233N1 Transfusion of Nonautologous Red Blood Cells into Peripheral Vein, Percutaneous Approach (ICD-10-PCS; 2018-02-22)
DX: O99.824 Streptococcus B carrier state complicating childbirth (principal); O75.2 Pyrexia during labor, not elsewhere classified; Z37.0 Single live birth; D62 Acute posthemorrhagic anemia; O72.1 Other immediate postpartum hemorrhage; O24.424 Gestational diabetes mellitus in childbirth, insulin controlled; O99.284 Endocrine, nutritional and metabolic diseases complicating childbirth; E03.9 Hypothyroidism, unspecified; O70.1 Second degree perineal laceration during delivery; O67.8 Other intrapartum hemorrhage; O99.02 Anemia complicating childbirth; Z3A.39 39 weeks gestation of pregnancy
CPT/HCPCS: 36415; 36430; 80307; 81005; 82962; 85025; 85027; 86592; 86850; 86900; 86901; 86920; 88307; C1758; J1756; J2210; J2300; J2405; J2540; J2550; J2590; J3010; J3490; P9016

== ENCOUNTER 2018-02-24 22:38 | Emergency (ER) | payer BC ==
[2018-02-24] MEDS ORDERED: NORMAL SALINE 1000 ML 1,000 ML IV ONE (23:36)
[2018-02-24] MEDS ORDERED: METOCLOPRAMIDE HCL INJ/PF 10 MG/2 ML SDV IV ONE (23:36)
--- NOTE | 2018-02-25 00:20 | RADIOLOGY REPORT (SQ) ---
EXAM DESCRIPTION: XR CHEST 1 VIEW COMPLETED DATE/TME: 02/24/2018 23:36 CLINICAL HISTORY: 22 years Female, sob COMPARISON: None. NUMBER OF VIEWS/TECHNIQUE: 1/AP FINDINGS: Adequate lung volume, clear parenchyma, normal cardiac silhouette, and intact bony thorax. IMPRESSION: No acute cardiopulmonary findings.
[2018-02-25 00:52] LABS: ANION GAP 10 (5-19); BLOOD UREA NITROGEN 9 mg/dL (7-20); CALCIUM 8.7 mg/dL (8.4-10.2); CARBON DIOXIDE 23 mmol/L (22-30); CHLORIDE 110 mmol/L (98-107); GLUCOSE 102 mg/dL (75-110); POTASSIUM 3.7 mmol/L (3.6-5.0); SODIUM 143.3 mmol/L (137-145)
[2018-02-25 00:55] LABS: ABSOLUTE BASOPHILS # (AUTO) 0.1 10^3/uL (0.0-0.2); ABSOLUTE EOSINOPHILS # (AUTO) 0.3 10^3/uL (0.0-0.6); ABSOLUTE MONOCYTES (AUTO) 0.6 10^3/uL (0.1-1.4); ABSOLUTE NEUT (AUTO) 9.1 10^3/uL (1.7-8.2); BASOPHILS % (AUTO) 0.6 % (0-2); EOSINOPHILS % (AUTO) 2.1 % (0-6); HEMATOCRIT 26.1 % (36.0-47.0); HEMOGLOBIN 8.7 g/dL (12.0-15.5); LYMPHOCYTES % (AUTO) 16.5 % (13-45); MEAN CORPUSCULAR HEMOGLOBIN 26.5 pg (27.0-33.4); MEAN CORPUSCULAR HGB CONC 33.3 g/dL (32.0-36.0); MEAN CORPUSCULAR VOLUME 79 fl (80-97); MONOCYTES % (AUTO) 4.7 % (3-13); PLATELET COUNT 251 10^3/uL (150-450); RED BLOOD COUNT 3.29 10^6/uL (3.72-5.28); RED CELL DISTRIBUTION WIDTH 17.7 % (11.5-14.0); SEGMENTED NEUTROPHILS % (AUTO) 76.1 % (42-78); TOTAL CELLS COUNTED % (AUTO) 100 %
--- NOTE | 2018-02-25 01:15 | ER Document Report ---
ED General - General Chief Complaint: Chest Tightness Stated Complaint: SHORTNESS OF BREATH Time Seen by Provider: 02/24/18 23:35 Notes: Patient is a 22-year-old female without chronic medical problems, 4 days from a spontaneous vaginal delivery who presents with multiple complaints. The patient reports that she has had intermittent headache, intermittent chest discomfort, intermittent upper and lower extremity pain. She states that the symptoms come and go. Nothing seems to improve or worsen her symptoms. Denies any symptoms currently at the time of my evaluation. Denies any shortness of breath at any time. Denies any unilateral leg swelling. She has not seen her primary care doctor regarding today's concern, did speak to the on-call provider for women's health care who advised that she come to the emergency department for assessment. She has not had fever. No history of similar symptoms in the past. She does describe the headache as a global, aching headache that comes and goes. Not currently present. She describes her chest discomfort as a achiness diffusely across the chest that likewise comes and goes. No pleuritic pain. TRAVEL OUTSIDE OF THE [place] IN LAST 30 DAYS: No - Related Data Allergies/Adverse Reactions: shellfish derived Allergy (Verified 02/19/18 01:24) Shrimp Allergy (Uncoded 02/19/18 01:24) Past Medical History - General Information source: Patient - Social History Smoking Status: Never Smoker Frequency of alcohol use: None Drug Abuse: None Lives with: Spouse/Significant other Family History: Reviewed & Not Pertinent Patient has suicidal ideation: No Patient has homicidal ideation: No Renal/ Medical History: Denies: Hx Peritoneal Dialysis - Immunizations Hx Diphtheria, Pertussis, Tetanus Vaccination: No Review of Systems - Review of Systems Notes: Constitutional: Negative for fever. HENT: Negative for sore throat. Eyes: Negative for visual changes. Cardiovascular: Positive for intermittent chest discomfort Respiratory: Negative for shortness of breath. Gastrointestinal: Negative for abdominal pain, vomiting or diarrhea. Genitourinary: Negative for dysuria. Musculoskeletal: Negative for back pain. Skin: Negative for rash. Neurological: Positive for headache, intermittent extremity pain 10 point ROS negative except as marked above and in HPI. Physical Exam - Vital signs Vitals: Temp Pulse Resp BP Pulse Ox 98.3 F 91 16 134/88 H 100 02/24/18 23:06 02/24/18 23:06 02/24/18 23:06 02/24/18 23:06 02/24/18 23:06 Interpretation: Normal Notes: PHYSICAL EXAMINATION: GENERAL: Well-appearing, well-nourished and in no acute distress. HEAD: Atraumatic, normocephalic. EYES: Pupils equal round and reactive to light, extraocular movements intact, sclera anicteric, conjunctiva are normal. ENT: nares patent, oropharynx clear without exudates. Moist mucous membranes. NECK: Normal range of motion, supple without lymphadenopathy LUNGS: Breath sounds clear to auscultation bilaterally and equal. No wheezes rales or rhonchi. HEART: Regular rate and rhythm without murmurs ABDOMEN: Soft, nontender, normoactive bowel sounds. No guarding, no rebound. No masses appreciated. EXTREMITIES: Normal range of motion, no pitting or edema. No cyanosis. NEUROLOGICAL: Normal rate face symmetric. Tongue protrudes midline. Extraocular motions intact. Pupils are 2 mm and equally reactive. Normal speech, normal gait. 5 out of 5 strength in both the distal and proximal upper and lower extremities bilaterally. Sensation is grossly intact throughout. Finger to nose testing normal. Pronator drift normal. PSYCH: Normal mood, normal affect. SKIN: Warm, Dry, normal turgor, no rashes or lesions noted. Course - Re-evaluation Re-evalutation: 02/25/18 01:10 Patient presents complaining of multiple, vague, varying complaints. In summary her main concern is that she has been having intermittent chest discomfort that is completely resolved at time of my evaluation. She also reports that she has had intermittent headache as well as intermittent paresthesias of both arms and both legs. At the time of my initial validation check she denies any complaints of any time stating that she feels completely fine right now symptoms have been varying and ongoing since time of discharge . Given complaint of chest tightness consideration will be for possible pulmonary embolus. The patient is not tachycardic, has no unilateral leg swelling and denies any shortness of breath at any time. No tachypnea or hypoxia. We have reviewed the low probability of PE, the inability to use d- dimer. Patient and at bedside agreeable to avoiding CTA at this point given the very low clinical suspicion for an acute PE. Chest x-ray is clear. EKG and troponin are normal. In regards to the patient headache: It is not currently present. There has been some borderline hypertensive blood pressures in the emergency department but the overall balance is pressures into the 130 systolic and mid 80s diastolic below the threshold to truly diagnose preeclampsia. Last blood pressure was 125 on 89. Moreover the patient does not have any ongoing headache at this time I do not think that this is a situation of preeclampsia at this point. The remainder of the patient's laboratories are otherwise unremarkable. The patient does admit to minimal to no sleep since delivery of the child which could be contributing to her current symptoms. At this time will discharge with return precautions and follow-up recommendations. Verbal discharge instructions given a the bedside and opportunity for questions given. Medication warnings reviewed. Patient is in agreement with this plan and has verbalized understanding of return precautions and the need for primary care follow-up in the next 24-72 hours. - Vital Signs Vital signs: Temp Pulse Resp BP Pulse Ox 98.3 F 91 19 127/86 H 100 02/24/18 23:06 02/24/18 23:06 02/25/18 03:01 02/25/18 03:01 02/25/18 03:01 - Laboratory Result Diagrams: 02/25/18 00:29 02/25/18 00:29 Laboratory results interpreted by me: 02/25/18 02/25/18 02/25/18 00:29 00:29 01:30 WBC 12.0 H RBC 3.29 L Hgb 8.7 L Hct 26.1 L MCV 79 L MCH 26.5 L RDW 17.7 H Absolute Neutrophils 9.1 H Chloride 110 H Urine Protein 30 H Urine Blood LARGE H Ur Leukocyte Esterase SMALL H - Diagnostic Test Radiology reviewed: Image reviewed, Reports reviewed Radiology results interpreted by me: 02/25/18 01:12 Chest x-ray: No acute infiltrate or pneumothorax - EKG Interpretation by Me Additional EKG results interpreted by me: 02/25/18 01:13 Sinus rhythm. Rate 89. No ST elevations or depressions. QTC is 448. Discharge - Discharge Clinical Impression: Multiple complaints, Intermittent chest discomfort Headache Qualifiers: Headache type: unspecified Headache chronicity pattern: acute headache Intractability: not intractable Qualified Code(s): R51 - Headache Condition: Good Disposition: HOME, SELF-CARE Additional Instructions: Your labs and workup today are reassuring. The exact cause of your symptoms is uncertain but does not appear to be from an immediately life-threatening cause today. Please follow-up with your [facility] in the next 2-3 days. Return to the emergency department immediately if you have progressively worsening symptoms, fever. 100.4 F, persistent headache, chest pain that does not resolve, shortness of breath, or any other symptoms that are worrisome to you. Referrals: LANA NORRIS MD [Primary Care Provider] - Follow up as needed
[2018-02-25 01:47] LABS: APPEARANCE,URINE SLIGHTLY-CLOUDY; BILIRUBIN,URINE NEGATIVE (NEGATIVE); COLOR,URINE YELLOW; GLUCOSE, URINE NEGATIVE (NEGATIVE); KETONES,URINE NEGATIVE (NEGATIVE); LEUKOCYTE ESTERASE,URINE SMALL (NEGATIVE); NITRITE,URINE NEGATIVE (NEGATIVE); PROTEIN,URINE 30 mg/dL (NEGATIVE); URINE SPECIFIC GRAVITY 1.013; UROBILINOGEN,URINE NEGATIVE mg/dL (<2.0)
[2018-02-25 03:10] VITALS: BP 127/86
--- NOTE | 2018-02-25 07:48 | EKG REPORT ---
SEVERITY:- ABNORMAL ECG - SINUS RHYTHM IVCD : Confirmed by: Thom Ward MD 25-Feb-2018 07:47:23
== END 2018-02-25 03:10 | disposition home or self-care (01) ==
LOC: ER 22:38
DX: R07.9 Chest pain, unspecified (principal); R51 Headache; M79.601 Pain in right arm; M79.602 Pain in left arm; M79.604 Pain in right leg; M79.605 Pain in left leg; R06.02 Shortness of breath
CPT/HCPCS: 93005; 99285; 96361; 96374; 36415; 85025; 80048; 81001; 84484; 71045; 93010; J2765; J7030